=== PATIENT | female | born 1960 | race Caucasian/White ===

== ENCOUNTER → 2024-06-01 14:35 | Outpatient (REF) | payer BC, SELFPAY | LOC: HWWDC 14:35 | PROVIDERS: ATTENDING PHYSICIAN Internal Medicine | DX: Z12.31 Encounter for screening mammogram for malignant neoplasm of breast (principal) | CPT/HCPCS: 77063; 77067 ==

== ENCOUNTER 2024-07-20 07:40 | Emergency (ER) | payer BC, SELFPAY ==
[2024-07-20 08:01] VITALS: BP 160/82
--- NOTE | 2024-07-20 09:42 | ED.GENMED ---
History of Present Illness
<Mario Dee MD, Resident - Last Filed: 07/20/24 13:26>
General
Chief Complaint: Throat Problem
Source: patient and records
Time Seen by Provider: 07/20/24 08:56
Travel History
Have you traveled to any high risk areas for coronavirus over the past 14 days?: No
Have you had any contact with someone who has COVID-19?: No
Do you have any symptoms of coronavirus? Fever > 100 degrees, chills, cough, shortness of breath, sore throat, loss of taste or smell, muscle aches, or headache?: No
History of Present Illness
History of Present Illness:
Merlyn Lechuga, 64-year-old female with esophageal strictures, choked while eating dinner on 07-15-24. Since then, she continues to feel that she will choke if she swallows and has not been able to tolerate solid foods. Able to tolerate thick liquids.
Unable to take oral medications unless she chews on them. She was first diagnosed in early and has undergone dilations 4-6 times since then. She had been followed by gastroenterologists in [place], [facility]. She recently moved back to
[place] and has not re-established with her previous GI or other practice.
Past History
<Mario Dee MD, Resident - Last Filed: 07/20/24 13:26>
Past History
ED Past Medical History: Other (hypertension; hyperlipidemia; type II diabetes mellitus; hypothyroidism; GERD; esophageal strictures; lichen planus)
ED Past Surgical History: Other (esophageal dilations * 4-6; cholecystectomy; ovarian cyst; wisdom tooth extraction)
Social History
Tobacco: Non-smoker
Alcohol: None
Drug: None
Personal:
Living: with family
Employment: Employed
Family History
Family History: Other (scleroderma (sister))
Review of Systems
<Mario Dee MD, Resident - Last Filed: 07/20/24 13:26>
Review of Systems
All Other Systems: ROS reviewed and negative except as documented in HPI and ROS
Phy Exam
<Mario Dee MD, Resident - Last Filed: 07/20/24 13:26>
General Physical Exam
General Presentation: well appearing and no apparent distress
General Skin: warm and dry
General Habitus: normal
General Mental: alert
General Hydration: appears well hydrated
ENT Exam
ENT Exam: EOMI, pharynx normal, neck supple and normocephalic
Eye Exam
Eye Exam: PERRL, cornea clear and conjunctiva normal
Cardiovascular Exam
Cardiovascular Exam: regular rate/rhythm, no edema, no murmur and normal peripheral pulses
Pulmonary Exam
Pulmonary Exam: lungs clear, no respiratory distress, no rales, no crackles, no rhonchi, no stridor, no wheezing and no cough
Gastrointestinal Exam
Gastrointestinal Exam: normal bowel sounds, non tender, soft, no organomegaly, no pulsatile mass and non distended
Neurological Exam
Neurological Exam: alert, oriented x3, no motor deficits and speech normal
Musculoskeletal Exam
Musculoskeletal Exam: full ROM and no edema
Skin Exam
Skin Exam: normal color, warm/dry, no rash and no petechia
Psychiatric Exam
Psychiatric Exam: normal mood/affect
Course
<Mario Dee MD, Resident - Last Filed: 07/20/24 13:26>
Vital Signs
Initial and Last Documented VS:
Initial Vital Signs
Temp Pulse Resp BP Pulse Ox
98.0 F 83 18 160/82 98
07/20/24 08:01 07/20/24 08:01 07/20/24 08:01 07/20/24 08:01 07/20/24 08:01
Last Documented Vital Signs
Temp Pulse Resp BP Pulse Ox
98.0 F 79 20 129/75 97
07/20/24 08:01 07/20/24 11:36 07/20/24 11:36 07/20/24 11:36 07/20/24 11:36
<Horacio Solo MD - Last Filed: 07/20/24 13:41>
Vital Signs
Initial and Last Documented VS:
Initial Vital Signs
Temp Pulse Resp BP Pulse Ox
98.0 F 83 18 160/82 98
07/20/24 08:01 07/20/24 08:01 07/20/24 08:01 07/20/24 08:01 07/20/24 08:01
Last Documented Vital Signs
Temp Pulse Resp BP Pulse Ox
98.0 F 79 20 129/75 97
07/20/24 08:01 07/20/24 11:36 07/20/24 11:36 07/20/24 11:36 07/20/24 11:36
<Mario Dee MD, Resident - Last Filed: 07/20/24 13:26>
MDM/Problems Addressed
Differential Diagnosis Includes:
esophageal impaction; dysphagia; esophageal strictures; esophageal candidiasis; mass
MDM/Problems Addressed:
Patient is stable and not in any distress. Continues to tolerate liquids well, and was able to tolerate puree diet yesterday. Discussed with Dr. Emily Stewart, on-call air quality manager. Discussed with the patient that since she is doing okay and
stable, this can be followed outpatient. Will coordinate with GI outpatient office to have the patient scheduled for a consultation.
<Mario Dee MD, Resident - Last Filed: 07/20/24 13:26>
*Critical Care Note
Total Time (30-74mins, 75-104mins- exclusive of procedures): Not Applicable
ED Attending Note
<Mario Dee MD, Resident - Last Filed: 07/20/24 13:26>
-
Portions of this chart may have been created with voice recognition software.� Occasional wrong word or��sound alike� substitutions may have occurred due to the inherent limitations of voice recognition software.
<Horacio Solo MD - Last Filed: 07/20/24 13:41>
ED Attending Note
Patient seen and examined by attending physician: Yes
ED Attending Note:
Patient with history of esophageal stricture, requiring multiple esophageal dilation, presents to ED secondary to persistent sensation of foreign body sensation, which occurred 5 days ago while she was eating eggs. Since then, patient has had
difficult time swallowing any solids, but has been able to drink liquid. Denies fever or chills. Denies shortness of breath. Denies trauma. Denies recent illness. Patient states that since onset of her symptoms, she has tried to eat some
crackers or soup, which has triggered coughing spasm.
Physical Exam
General: no apparent distress, not acutely ill. afebrile
Head: nc/at. eomi
Neck: supple. no meningeal signs. normal posterior pharynx
Lungs: no acute respiratory distress. clear bilaterally
Abdomen: normal bowel sounds. not tender.
Neuro: alert and oriented. no focal neurological deficits
Skin: no rash
Psychiatric: well kept. interactive and cooperative
Extremities: no edema. no calf tenderness.
Patient is alert, awake, and oriented, without any acute respiratory distress at rest. However given duration of her symptoms, with continued decreased oral intake as a result, will speak with GI physician on-call.
Discussed with [facility] () - does not feel that pt is in need of emergent endoscopy, as her symptoms appear to be improving. As such, GI office will contact patient at home for an urgent outpatient evaluation. Pt and family expressed
understanding at time of discharge.
Discharge Plan
Departure
Patient Disposition: Home (Routine Discharge)
Date of Disposition: 07/20/24
Time of Disposition: 10:56
Patient with high blood pressure during this ER visit?: No
Condition: Good
Discharge Problem:
Esophageal stricture
Instructions: Esophageal Stricture (DC)
Referrals:
Emily Stewart MD [Active] - Call in 1-3 days for appt
Carl Issa MD [Family Provider] - Call in 1-3 days for appt
Activity Restrictions/Additional Instructions:
Please call to schedule a follow-up with your primary and consult gastroenterology within 1 week. Please return to the emergency for any symptoms such persistent choking, pooling of saliva, drooling, need to frequent spitting, dizziness,
lightheadedness, uncontrollable or worsening throat pain, or inability to tolerate liquid or puree diet.
Interventions
Interventions:
*Risk Screen - Suicide Last Done: 07/20/24 08:00
*General Assessment Last Done: 07/20/24 08:00
*Neglect/Abuse Screening Last Done: 07/20/24 08:00
ED- Fall Risk Assessment Last Done: 07/20/24 09:59
*ED COVID-19 Vaccine History Last Done: 07/20/24 09:58
*Nursing Disposition Last Done: 07/20/24 11:36
ED-EENT Assessment Last Done: 07/20/24 10:30
ED- Pulmonary Assessment Last Done: 07/20/24 09:59
Discharge Date and Time
Discharge Date/Time: 07/20/24 11:42
Print Language: SERBIAN
[2024-07-20 10:00] VITALS: BP 120/71; BMI 30.1
[2024-07-20 11:36] VITALS: BP 129/75
== END 2024-07-20 11:42 | disposition home or self-care (01) ==
LOC: EMR 07:40
PROVIDERS: EMERGENCY PHYSICIAN Emergency Medicine; FAMILY PHYSICIAN Internal Medicine
DX: K22.2 Esophageal obstruction (principal); E03.9 Hypothyroidism, unspecified; E11.9 Type 2 diabetes mellitus without complications; E78.5 Hyperlipidemia, unspecified; I10 Essential (primary) hypertension; K21.9 Gastro-esophageal reflux disease without esophagitis; Z90.49 Acquired absence of other specified parts of digestive tract
CPT/HCPCS: 99282

== ENCOUNTER → 2025-02-17 14:48 | Outpatient (REF) | payer OTHER, SELFPAY | LOC: RAD 14:48 | PROVIDERS: ATTENDING PHYSICIAN Nurse Practitioner Family | DX: M25.521 Pain in right elbow (principal); M25.561 Pain in right knee | CPT/HCPCS: 73080; 73564; 73565 ==

== ENCOUNTER → 2025-07-15 11:04 | Outpatient (REF) | payer BC, SELFPAY | LOC: HWWDC 11:04 | PROVIDERS: ATTENDING PHYSICIAN Physician Assistant | DX: Z12.31 Encounter for screening mammogram for malignant neoplasm of breast (principal) | CPT/HCPCS: 77063; 77067 ==